=== PATIENT | male | born 1985 | race African-American/Black ===

== ENCOUNTER 2017-02-10 21:12 | Emergency (ER) | payer OTHER ==
[~2017-02-10] VITALS: Ht 185.4 cm; Wt 88.4 kg
[~2017-02-10 21:12] MED LIST: AFRIN 12 HOUR0.05 %; AMOXICILLIN500 MG PO; ANAPROX275 MG OR; ATIVAN0.5 MG PO; BENZONATATE200 MG PO; BUSPAR5 MG PO; CEPHALEXIN500 MG PO; CIPRO500 MG PO; CIPROFLOXACN500 MG PO; DOXYCYCL HYC100 MG PO; FLEXERIL PO; IBUPROFEN600 MG PO; IMODIUM A-D2 MG OR; NAPROSYN500 MG PO; NASACORT AQ55 MCG/AC; NO HOME MEDS; PYRIDIUM200 MG PO; SERAX PO; SOMA350 MG OR; TOBRAMYCIN0.3 % OD; TRIAMCINOLON0.11 EX; TRIMETHOPRIM100 MG PO; VENTOLIN HFA IN; XANAX0.5 MG PO; ZOFRAN ODT8 MG SL
[2017-02-10 23:00] VITALS: BP 135/86
== END 2017-02-10 23:00 | disposition home or self-care (01) | DRG 923 ==
LOC: ED 21:12
DX: Z04.1 Encounter for examination and observation following transport accident (principal); V48.5XXA Car driver injured in noncollision transport accident in traffic accident, initial encounter; Y92.414 Local residential or business street as the place of occurrence of the external cause

== ENCOUNTER 2018-03-02 23:58 | Emergency (ER) | payer OTHER ==
[~2018-03-02] VITALS: Ht 185.4 cm; Wt 92.6 kg
[2018-03-03] MEDS ORDERED: NAPROSYN500 MG PO (01:16)
[2018-03-03] MEDS ORDERED: FLEXERIL PO (01:17)
[2018-03-03 01:33] VITALS: BP 142/88
== END 2018-03-03 01:33 | disposition home or self-care (01) | DRG 563 ==
LOC: ED 23:58
DX: S53.401A Unspecified sprain of right elbow, initial encounter (principal); S50.311A Abrasion of right elbow, initial encounter; V49.49XA Driver injured in collision with other motor vehicles in traffic accident, initial encounter; Y92.488 Other paved roadways as the place of occurrence of the external cause

== ENCOUNTER 2019-10-07 | Emergency (ER) | payer OTHER ==
[2019-10-07] MEDS ORDERED: TAM75CAP PO (15:04)
== END 2019-10-07 15:08 | disposition home or self-care (01) | DRG 153 ==
DX: J11.1 Influenza due to unidentified influenza virus with other respiratory manifestations (principal)

== ENCOUNTER 2022-10-03 14:32 | Emergency (ER) | payer BC ==
[~2022-10-03] VITALS: Ht 185.4 cm; Wt 101.0 kg
[~2022-10-03 14:32] MED LIST changes: +TAM75CAP PO
[2022-10-03] MEDS ORDERED: LOSARTAN POTASS25 MG PO (14:42)
[2022-10-03 15:53] VITALS: BP 132/87
== END 2022-10-03 16:06 | disposition home or self-care (01) | DRG 556 ==
LOC: ED 14:32
DX: M25.572 Pain in left ankle and joints of left foot (principal)

== ENCOUNTER 2023-03-22 11:13 | Emergency (ER) | payer BC ==
[~2023-03-22] VITALS: Ht 185.4 cm; Wt 94.8 kg
[~2023-03-22 11:13] MED LIST changes: +LOSARTAN POTASS25 MG PO
[2023-03-22 11:19] VITALS: BP 135/85
[2023-03-22 11:30] VITALS: BP 141/97
[2023-03-22 11:55] VITALS: BP 141/97
[2023-03-22] MEDS ORDERED: VOLTAREN1%GEL TOP ×2 (11:55→12:01)
[2023-03-22] MEDS ORDERED: NAPROXEN500 MG PO ×2 (11:55→12:01)
== END 2023-03-22 12:17 | disposition home or self-care (01) | DRG 556 ==
LOC: ED 11:13
DX: M25.561 Pain in right knee (principal); M25.461 Effusion, right knee

== ENCOUNTER 2024-09-24 10:45 | Emergency (ER) | payer BC ==
[2024-09-24] VITALS (7 sets, daily range): BP systolic 132–148; BP diastolic 84–102
[~2024-09-24] VITALS: Ht 185.4 cm; Wt 86.0 kg
[~2024-09-24 10:45] MED LIST changes: +NAPROXEN500 MG PO; +VOLTAREN1%GEL TOP
[2024-09-24] MEDS ORDERED: KETOROLAC TROMETHAMINE 30 MG/ML SDV IM ONE (12:15)
[2024-09-24] MEDS ORDERED: METHOCARBAMOL 500 MG/TAB PO ONE (12:15)
[2024-09-24] MEDS ORDERED: FLEXERIL5 M1 PO ×2 (13:44→14:08)
== END 2024-09-24 14:01 | disposition home or self-care (01) | DRG 552 ==
LOC: ED 10:45
DX: M54.2 Cervicalgia (principal); M54.9 Dorsalgia, unspecified